=== PATIENT | female | born 1965 | race Caucasian/White ===

== ENCOUNTER → 2020-01-11 13:56 | Outpatient (CLI) | payer OTHER, SELFPAY ==
--- NOTE | ~2020-01-11 | MM_ITS ---
EXAMINATION: MM screening [facility] w [facility] HISTORY: Screening mammogram TECHNIQUE: Craniocaudal and mediolateral oblique 3-D tomosynthesis images were obtained and synthetic 2-D images were generated. CAD analysis was submitted and interpreted. COMPARISON: No prior mammogram is available for comparison at this institution. BREAST PARENCHYMAL COMPOSITION: The breasts are extremely dense, which lowers the sensitivity of mamm ography. FINDINGS: There is no evidence of suspicious mass, calcification, or architectural distortion to sugg est malignancy in either breast. There has been no suspicious interval change. IMPRESSION: 1. No mammographic evidence of malignancy. 2. Recommend routine screening mammography in one year. BI-RADS Category 1: Negative Reviewed, dictated and finalized at location A. MACHINIST
== END ==
PROVIDERS: Visit Provider Nurse Practitioner Obstetrics & Gynecology
DX: Z12.31 Encounter for screening mammogram for malignant neoplasm of breast (principal)
CPT/HCPCS: 77063; 77067

== ENCOUNTER 2020-02-09 05:34 | Day surgery (SDC) | payer OTHER, SELFPAY ==
[2020-02-05 11:34] VITALS: BMI 27.5
[2020-02-09 07:09] VITALS: BP 116/82; PULSE 93; RESP 18; TEMP 36.3; O2SAT 100; BMI 24.5
--- NOTE | 2020-02-09 07:10 | WPDANESEPPF ---
Anes - Initial Pre Proc Eval Procedure: Operation Date: 02/09/20 08:00 Proposed Procedures p Esophagogastroduodenoscopy - Gamaliel Sosa MD Date/Time: 02/09/20 07:10 Surgeon: Gamaliel Sosa MD Pre Op Diagnosis: Dysphagia Patient Data Age: 54 Gender: F Height: 5 ft 5 in Weight: 75 kg Allergies Allergy/AdvReac Type Severity Reaction Status Date / Time levofloxacin Allergy Unknown Cramping Verified 02/09/20 07:09 of the Muscles Home Medications Medication Instructions Recorded Confirmed Type fluticasone propionate 50 1 spray NASAL DAILY 12/21/19 02/05/20 History mcg/actuation nasal spray,suspension montelukast 10 mg tablet 10 mg PO .in the evening #90 tablet 12/21/19 02/05/20 Rx omeprazole 40 mg capsule,delayed 40 mg PO DAILY 12/21/19 02/05/20 History release levocetirizine 5 mg tablet 5 mg PO .in the evening #90 tablet 01/24/20 02/05/20 Rx estradiol-norethindrone acet 1 patch 02/05/20 History [CombiPatch] Patient hx anesthesia problems: none Family hx anesthesia problems: none PMFSH Family History Family History Mother Hypertension Patient's mother is in good health Other Family history of arthritis Social History Social History Smoking status: Former smoker Second hand tobacco smoke exposure: No Smoking end date: 11/08/96 Alcohol intake: never Anes - Eval Final PreProcedure Day of Procedure 02/09/20 07:10 Patient weight: overweight Heart: regular rate and rhythm Lungs: clear to auscultation Airway: Mallampati scale Neurological: alert and oriented Last oral intake: >/= 8 hours ASA classification: II Emergent: no Anesthetic plan: proceed Anesthesia type and monitoring: general GIVS and standard monitoring Informed Consent: The patient's anesthetic plan and its attendant risks and benefits were discussed with the patient/family/POA. Questions were solicited and answers provided to the satisfaction of the patient/family/POA.
--- NOTE | 2020-02-09 07:14 | P.HP_ITS ---
History of Present Illness History of Present Illness Consent: Risks, benefits, and alternatives have been discussed and questions answered. Patient agrees to proceed with procedure. Chief complaint: Dysphagia Narrative: Deepika Santillan is a 54 year old W female Referred for a semi emergent gastroscopy for evaluation of dysphagia. This occurs primarily with solid foods but once this gets stuck in the mid sternum she has trouble with liquids as well. Patient has chronic heartburn for over a year. She was on Prilosec 20 mg daily and this was working. Her symptoms then became persistent despite the Prilosec she stop this and symptoms have worsened. She has had regurgitation of the food. She thought 1 occasion she was going to have to go to the emergency room because of food was stuck. She is on no medication to suggest pill induced esophagitis. Patient did have a colonoscopy November 2018 at which time a small sessile serrated polyp was removed. [facility] Family History Family History Mother Hypertension Patient's mother is in good health Other Family history of arthritis Social History Social History Smoking status: Former smoker Second hand tobacco smoke exposure: No Smoking end date: 11/08/96 Alcohol intake: never Meds Home Medications and Allergies Home Medications Medication Instructions Recorded Confirmed Type fluticasone propionate 50 1 spray NASAL DAILY 12/21/19 02/05/20 History mcg/actuation nasal spray,suspension montelukast 10 mg tablet 10 mg PO .in the evening #90 tablet 12/21/19 02/05/20 Rx omeprazole 40 mg capsule,delayed 40 mg PO DAILY 12/21/19 02/05/20 History release levocetirizine 5 mg tablet 5 mg PO .in the evening #90 tablet 01/24/20 02/05/20 Rx estradiol-norethindrone acet 1 patch 02/05/20 History [CombiPatch] Allergies Allergy/AdvReac Type Severity Reaction Status Date / Time levofloxacin Allergy Unknown Cramping Verified 02/09/20 07:09 of the Muscles Exam Const: Orientation/consciousness: patient oriented x3 Resp: Auscultation: clear to auscultation bilaterally Cardio: Rate: regular rate Rhythm: regular rhythm Heart sounds: no murmurs GI: GI Palp: Yes Soft to palpation, No Tenderness to palpation present (GI), Yes No hepatosplenomegaly present and No Palpable mass present Auscultation: normal bowel sounds Neuro: General: patient oriented x3 and no focal motor deficits Extrem: General: no pedal edema Assessment and Plan Additional Plan EGD with possible esophageal dilatation for evaluation of chronic heartburn and increased dysphagia
[2020-02-09] MEDS: LACTATED RINGERS 1,000 ML 150 ML IV CONT (07:20)
[2020-02-09 08:07] VITALS: BP 118/78; PULSE 91; RESP 22; O2SAT 100
[2020-02-09 08:17] VITALS: BP 133/89; PULSE 82; RESP 16; O2SAT 100
[2020-02-09 08:27] VITALS: BP 133/80; PULSE 78; RESP 18; O2SAT 100
== END 2020-02-09 08:33 | disposition home or self-care (01) ==
PROVIDERS: PCP Internal Medicine; Visit Provider Internal Medicine Gastroenterology
PROC: 0DJ08ZZ Inspection of Upper Intestinal Tract, Via Natural or Artificial Opening Endoscopic (ICD-10-PCS; CPT 43235; principal; 2020-02-09 08:00)
DX: K22.2 Esophageal obstruction (principal); K44.9 Diaphragmatic hernia without obstruction or gangrene; K21.0 Gastro-esophageal reflux disease with esophagitis; Z87.891 Personal history of nicotine dependence
CPT/HCPCS: 43249; C1726; J2704; J7120

== ENCOUNTER → 2021-04-24 10:42 | Outpatient (CLI) | payer OTHER, SELFPAY ==
--- NOTE | ~2021-04-24 | MM_ITS ---
EXAMINATION: MM screening [facility] BI w popeye HISTORY: Screening mammogram TECHNIQUE: Craniocaudal and mediolateral oblique 3-D tomosynthesis images were obtained and synthetic 2-D images were generated. CAD analysis was submitted and interpreted. COMPARISON: 01/11/2020 BREAST PARENCHYMAL COMPOSITION: The breasts are extremely dense, which lowers the sensitivity of mamm ography. FINDINGS: There is no evidence of suspicious mass, calcification, or architectural distortion to sugg est malignancy in either breast. There has been no suspicious interval change. IMPRESSION: 1. No mammographic evidence of malignancy. 2. Recommend routine screening mammography in one year. BI-RADS Category 1: Negative Reviewed, dictated and finalized at location A.
== END ==
PROVIDERS: Visit Provider Nurse Practitioner Obstetrics & Gynecology
DX: Z12.31 Encounter for screening mammogram for malignant neoplasm of breast (principal)
CPT/HCPCS: 77063; 77067

== ENCOUNTER → 2022-07-02 10:43 | Outpatient (CLI) | payer OTHER, SELFPAY ==
--- NOTE | ~2022-07-02 | MM_ITS ---
EXAMINATION: MM screening [facility] w [facility] HISTORY: Screening TECHNIQUE: Craniocaudal and mediolateral oblique 3-D tomosynthesis images were obtained and synthetic 2-D images were generated. CAD analysis was submitted and interpreted. COMPARISON: Comparison to multiple prior studies sequentially, with oldest reviewed study dated 03/2020. BREAST PARENCHYMAL COMPOSITION: The breasts are extremely dense, which lowers the sensitivity of mamm ography FINDINGS: There is no evidence of suspicious mass, calcification, or architectural distortion to sugg est malignancy in either breast. There has been no suspicious interval change. IMPRESSION: 1. No mammographic evidence of malignancy. 2. Recommend routine screening mammography in one year. BI-RADS Category 1: Negative Reviewed, dictated and finalized at location A.
== END ==
PROVIDERS: PCP Physician Assistant; Visit Provider Nurse Practitioner Obstetrics & Gynecology
DX: Z12.31 Encounter for screening mammogram for malignant neoplasm of breast (principal)
CPT/HCPCS: 77063; 77067

== ENCOUNTER → 2023-10-14 11:18 | Outpatient (CLI) | payer OTHER, SELFPAY ==
--- NOTE | ~2023-10-14 | MM_ITS ---
EXAMINATION: MM screening [facility] BI w popeye HISTORY: Screening mammogram TECHNIQUE: Craniocaudal and mediolateral oblique 3-D tomosynthesis images were obtained and synthetic 2-D images were generated. CAD analysis was submitted and interpreted. COMPARISON: 07/02/2022, 04/24/2021, 01/11/2020 BREAST PARENCHYMAL COMPOSITION: The breasts are extremely dense, which lowers the sensitivity of mamm ography. FINDINGS: No suspicious mass, calcification, or architectural distortion are identified in either helio ast to suggest malignancy. There has been no suspicious interval change. IMPRESSION: 1. No mammographic evidence of malignancy. 2. Recommend routine screening mammography in one year. BI-RADS Category 1: Negative Reviewed, dictated and finalized at location A. GER APPLICATION
== END ==
PROVIDERS: PCP Nurse Practitioner Obstetrics & Gynecology; Visit Provider Nurse Practitioner Obstetrics & Gynecology
DX: Z12.31 Encounter for screening mammogram for malignant neoplasm of breast (principal)
CPT/HCPCS: 77063; 77067